=== PATIENT | female | born 1940 | race Caucasian/White ===

== ENCOUNTER 2018-06-19 13:46 | Outpatient (CLI) | payer MEDICARE | END 2018-06-19 13:47 | disposition home or self-care (01) | LOC: BICMAMMO 13:46 | PROVIDERS: ATTEND Internal Medicine | DX: Z12.31 Encounter for screening mammogram for malignant neoplasm of breast (principal); R92.1 Mammographic calcification found on diagnostic imaging of breast; N64.89 Other specified disorders of breast; Z80.3 Family history of malignant neoplasm of breast | CPT/HCPCS: 77063; 77067 ==

== ENCOUNTER 2019-07-09 10:47 | Outpatient (CLI) | payer MEDICARE ==
--- NOTE | 2019-07-09 11:19 | MMO ---
Bilateral MAMMO Bilat Screen [facility]. CLINICAL HISTORY: Patient is 79 years old and is seen for screening. The patient has the following family history of breast cancer: mother and paternal aunt. The patient has no personal history of cancer. VIEWS: The views performed were: bilateral craniocaudal with tomosynthesis and bilateral mediolateral oblique with tomosynthesis. FILMS COMPARED: The present examination has been compared to prior imaging studies performed at [facility] on 05/07/2014, 07/09/2015, 12/22/2016 and 06/19/2018. This study has been interpreted with the assistance of computer-aided detection. MAMMOGRAM FINDINGS: The breasts are heterogeneously dense, which could obscure a lesion on mammography. There are stable benign appearing calcifications seen in both breasts. There are no suspicious masses, suspicious calcifications, or new areas of architectural distortion. IMPRESSION: THERE IS NO MAMMOGRAPHIC EVIDENCE OF MALIGNANCY. A ROUTINE FOLLOW-UP MAMMOGRAM IN 1 YEAR IS RECOMMENDED. THE RESULTS OF THIS EXAM WERE SENT TO THE PATIENT. ACR BI-RADS Category 2 - Benign finding MAMMOGRAPHY NOTE: 1. A negative mammogram report should not delay a biopsy if a dominant of clinically suspicious mass is present. 2. Approximately 10% to 15% of breast cancers are not detected by mammography. 3. Adenosis and dense breasts may obscure an underlying neoplasm. Reported by: JAGRUTI BOSCH MD Electonically Signed: [id number]
== END 2019-07-09 10:48 | disposition home or self-care (01) ==
LOC: BICMAMMO 10:47
PROVIDERS: ATTEND Internal Medicine
DX: Z12.31 Encounter for screening mammogram for malignant neoplasm of breast (principal); Z80.3 Family history of malignant neoplasm of breast
CPT/HCPCS: 77063; 77067

== ENCOUNTER 2020-08-07 13:58 | Outpatient (CLI) | payer MEDICARE | END 2020-08-07 13:59 | disposition home or self-care (01) | LOC: BICMAMMO 13:58 | PROVIDERS: ATTEND Internal Medicine | DX: Z12.31 Encounter for screening mammogram for malignant neoplasm of breast (principal); Z80.3 Family history of malignant neoplasm of breast | CPT/HCPCS: 77063; 77067 ==

== ENCOUNTER 2021-09-15 13:22 | Outpatient (CLI) | payer MEDICARE | END 2021-09-15 13:23 | disposition home or self-care (01) | LOC: BICMAMMO 13:22 | PROVIDERS: ATTEND Internal Medicine | DX: Z12.31 Encounter for screening mammogram for malignant neoplasm of breast (principal); Z80.3 Family history of malignant neoplasm of breast | CPT/HCPCS: 77063; 77067 ==

== ENCOUNTER 2022-11-29 13:59 | Outpatient (CLI) | payer MEDICARE | END 2022-11-29 14:00 | disposition home or self-care (01) | LOC: BICMAMMO 13:59 | PROVIDERS: ATTEND Internal Medicine | DX: Z12.31 Encounter for screening mammogram for malignant neoplasm of breast (principal); Z80.3 Family history of malignant neoplasm of breast; Z91.89 Other specified personal risk factors, not elsewhere classified | CPT/HCPCS: 77063; 77067 ==

== ENCOUNTER 2024-02-08 14:26 | Inpatient (IN) | payer MEDICARE ==
[2024-02-08] MEDS ORDERED: Acetaminophen 325 MG TAB PO PRN (15:57)
[2024-02-08] MEDS ORDERED: Glucagon 1 MG/ML KIT IM PRN (16:15)
[2024-02-08] MEDS ORDERED: Dextrose 5% in Water 1,000 ML IV PRN (16:15)
[2024-02-08] MEDS ORDERED: Dextrose 50% Abboject 50 ML SYRINGE SLOW IVP PRN (16:15)
[2024-02-08] MEDS ORDERED: Insulin Lispro 100 UNIT/ML 10 ML VIAL SC PRN (16:15)
[2024-02-08 16:30] VITALS: BMI 26.5
[2024-02-08] MEDS: Doxycycline 100 MG in Sodium Chloride 0.9% 100 ML IVPB SCH (18:00)
[2024-02-08] MEDS: LevoFLOXacin 750 MG TAB PO SCH (18:01)
[2024-02-08 18:48] LABS: Strep pneumo Urine Ag NEGATIVE (NEGATIVE)
[2024-02-08] MEDS: Carvedilol 6.25 MG TAB PO SCH (20:40)
[2024-02-08] MEDS: Atorvastatin Calcium 40 MG TAB PO SCH ×2 (21:45→21:48)
[2024-02-08] MEDS: Melatonin 3 MG TAB PO PRN (21:45)
[2024-02-09 04:01] LABS: #Basophils Less than 0.03 10x3/uL (0.0-0.2); #Eosinophils Less than 0.03 10x3/uL (0.0-0.7); %Basophils 0.1 % (0.0-1.0); %Lymphocytes 11.5 % (21.0-51.0); %Neutrophils 81.3 % (42.0-75.0); Hematocrit 38.2 % (36.0-47.0); Hemoglobin 12.8 g/dL (12.0-16.0); Mean Corpuscular HGB CONC 33.5 g/dL (32.0-36.0); Mean Corpuscular Hemoglobin 28.3 pg (27.0-31.0); Mean Corpuscular Volume 84.3 fL (78.0-98.0); Mean Platelet Volume 10.5 fL (7.4-10.4); Platelet Count 228 10x3/uL (130-400); RBC Distribution Width 13.7 % (11.5-14.5); Red Blood Cell (RBC) Count 4.53 mill/uL (4.20-5.40)
[2024-02-09 04:16] LABS: Anion Gap 12 mmol/L (10-20); BUN (Urea Nitrogen) 13 mg/dL (9.8-20.1); Calc. Creatinine Clearance 64 mL/min (70-130); Calcium 10.4 mg/dL (7.8-10.44); Carbon Dioxide 22 mmol/L (23-31); Chloride 105 mmol/L (98-107); Estimated GFR 82; Glucose 158 mg/dL (83-110); Potassium 3.6 mmol/L (3.5-5.1); Sodium 135 mmol/L (136-145)
[2024-02-09] MEDS: Doxycycline 100 MG in Sodium Chloride 0.9% 100 ML IVPB SCH (06:14)
[2024-02-09] MEDS: Spironolactone 25 MG TAB PO SCH (08:39)
[2024-02-09] MEDS ORDERED: Atorvastatin Calcium 40 MG TAB PO SCH (09:00)
[2024-02-09] MEDS ORDERED: Guaifenesin DM 100-10/5 ML UDCUP PO PRN (09:31)
[2024-02-09] MEDS ORDERED: Ipratropium/Albuterol 3 ML NEB NEB PRN (09:31)
[2024-02-09] MEDS: Loratadine 10 MG TAB PO SCH (10:25)
[2024-02-09] MEDS: Pantoprazole DR 40 MG TAB PO SCH (10:25)
[2024-02-09 10:38] VITALS: BMI 26.5
[2024-02-09] MEDS ORDERED: LevoFLOXacin 750 MG TAB PO SCH (18:00)
[2024-02-09 22:25] LABS: SARS-CoV-2 N1 Negative; SARS-CoV-2 N2 Negative; SARS-CoV-2 RNAse P1 Positive
[2024-02-09] MEDS: traZODone HCl 50 MG TAB PO SCH (23:21)
[2024-02-10 05:05] LABS: #Basophils 0.04 10x3/uL (0.0-0.2); %Basophils 0.5 % (0.0-1.0); %Eosinophils 0.9 % (0.0-10.0); %Lymphocytes 18.7 % (21.0-51.0); %Monocytes 8.4 % (0.0-10.0); %Neutrophils 70.6 % (42.0-75.0); Hematocrit 37.5 % (36.0-47.0); Hemoglobin 12.4 g/dL (12.0-16.0); Mean Corpuscular HGB CONC 33.1 g/dL (32.0-36.0); Mean Corpuscular Hemoglobin 28.1 pg (27.0-31.0); Mean Corpuscular Volume 84.8 fL (78.0-98.0); Mean Platelet Volume 10.7 fL (7.4-10.4); Platelet Count 227 10x3/uL (130-400); Red Blood Cell (RBC) Count 4.42 mill/uL (4.20-5.40)
[2024-02-10 05:15] LABS: Anion Gap 11 mmol/L (10-20); BUN (Urea Nitrogen) 12 mg/dL (9.8-20.1); Calc. Creatinine Clearance 70 mL/min (70-130); Calcium 10.3 mg/dL (7.8-10.44); Carbon Dioxide 24 mmol/L (23-31); Chloride 109 mmol/L (98-107); Estimated GFR 87; Glucose 138 mg/dL (83-110); Potassium 3.8 mmol/L (3.5-5.1); Sodium 140 mmol/L (136-145)
[2024-02-10] MEDS ORDERED: traZODone HCl 50 MG TAB PO PRN (11:40)
[2024-02-10] MEDS: FLU (Fluad Triv) TS24-25 (65UP)/MF59C/PF 45 MCG/0.5 ML Syringe IM ONE (12:00)
[2024-02-10] MEDS: Polyethylene Glycol 3350 17 GM Packet PO SCH (12:01)
[2024-02-10] MEDS ORDERED: metFORMIN 500 MG TAB PO SCH (17:00)
[2024-02-10] MEDS: metFORMIN 500 MG TAB PO SCH (17:11)
[2024-02-10] MEDS: Calcium Carbonate 600 MG + Vit D TAB PO SCH (17:11)
[2024-02-10] MEDS: Melatonin 3 MG TAB PO SCH (20:37)
[2024-02-10] MEDS: guaiFENesin ER 600 MG TAB PO SCH (20:37)
[2024-02-10] MEDS: Multivit, Therapeutic 1 TAB PO SCH (20:37)
[2024-02-11] MEDS: Spironolactone 25 MG TAB PO SCH (08:40)
[2024-02-11] MEDS: predniSONE 20 MG TAB PO SCH (08:40)
[2024-02-11] MEDS: Mirabegron ER 25 MG ER.TAB PO SCH (08:42)
[2024-02-11] MEDS: Polyethylene Glycol 3350 17 GM Packet PO SCH (08:43)
[2024-02-11] MEDS ORDERED: Lisinopril 10 MG TAB PO SCH (09:00)
[2024-02-11] MEDS: hydrALAZINE 20 MG/ML VIAL SLOW IVP SCH (21:30)
[2024-02-12 06:00] LABS: #Basophils 0.03 10x3/uL (0.0-0.2); %Basophils 0.3 % (0.0-1.0); %Eosinophils 0.4 % (0.0-10.0); %Lymphocytes 17.3 % (21.0-51.0); %Monocytes 6.2 % (0.0-10.0); %Neutrophils 75.1 % (42.0-75.0); Hematocrit 40.6 % (36.0-47.0); Hemoglobin 13.2 g/dL (12.0-16.0); Mean Corpuscular HGB CONC 32.5 g/dL (32.0-36.0); Mean Corpuscular Hemoglobin 27.8 pg (27.0-31.0); Mean Corpuscular Volume 85.7 fL (78.0-98.0); Mean Platelet Volume 10.4 fL (7.4-10.4); Platelet Count 242 10x3/uL (130-400); RBC Distribution Width 13.8 % (11.5-14.5); Red Blood Cell (RBC) Count 4.74 mill/uL (4.20-5.40)
[2024-02-12 06:18] LABS: ALT (SGPT) 16 U/L (8-55); AST (SGOT) 13 U/L (5-34); Albumin 3.2 g/dL (3.4-4.8); Alkaline Phosphatase 23 U/L (40-110); Bilirubin, Direct 0.2 mg/dL (0.1-0.3); Bilirubin, Total 0.6 mg/dL (0.2-1.2); Protein, Total 6.4 g/dL (5.8-8.1)
[2024-02-12 06:19] LABS: Anion Gap 10 mmol/L (10-20); BUN (Urea Nitrogen) 11 mg/dL (9.8-20.1); Calc. Creatinine Clearance 70 mL/min (70-130); Calcium 11.1 mg/dL (7.8-10.44); Carbon Dioxide 23 mmol/L (23-31); Chloride 106 mmol/L (98-107); Estimated GFR 87; Glucose 111 mg/dL (83-110); Magnesium 1.8 mg/dL (1.6-2.6); Potassium 3.4 mmol/L (3.5-5.1); Sodium 136 mmol/L (136-145)
[2024-02-12] MEDS: Potassium Bicarbonate/Cit Ac 20 MEQ TAB PO SCH (08:09)
[2024-02-12] MEDS: Magnesium 2 GM/50 ML(in water) 2 GM in Premix 1 BAG IVPB SCH (08:10)
[2024-02-12] MEDS: OMEGA PO SCH (08:32)
[2024-02-12] MEDS: VIT E PO SCH (08:32)
[2024-02-12] MEDS: UBIDECARENONE PO SCH (08:32)
[2024-02-12] MEDS: Lisinopril 5 MG TAB PO SCH (12:32)
[2024-02-12] MEDS ORDERED: Iopamidol-370 76% 500 ML MDV (1 ML CHARGE) ONE (13:00)
[2024-02-12 18:28] LABS: Legionella Urinary Ag Negative (Negative)
[2024-02-12] MEDS: Aspirin 325 mg Enteric Coated Tablet PO SCH (18:50)
[2024-02-12] MEDS: Polyvinyl Alcohol 1.4%/Povidone 0.6% Opth Drops EA EYE SCH (20:51)
[2024-02-12] MEDS: Doxycycline 100 MG CAP PO SCH (22:26)
[2024-02-12] MEDS: traZODone HCl 50 MG TAB PO PRN (22:26)
[2024-02-13 06:25] LABS: #Basophils 0.03 10x3/uL (0.0-0.2); %Basophils 0.3 % (0.0-1.0); %Eosinophils 0.8 % (0.0-10.0); %Lymphocytes 22.7 % (21.0-51.0); %Monocytes 7.8 % (0.0-10.0); %Neutrophils 67.4 % (42.0-75.0); Hematocrit 39.5 % (36.0-47.0); Hemoglobin 12.7 g/dL (12.0-16.0); Mean Corpuscular HGB CONC 32.2 g/dL (32.0-36.0); Mean Corpuscular Hemoglobin 28.2 pg (27.0-31.0); Mean Corpuscular Volume 87.8 fL (78.0-98.0); Mean Platelet Volume 10.7 fL (7.4-10.4); Platelet Count 226 10x3/uL (130-400); RBC Distribution Width 14.2 % (11.5-14.5)
[2024-02-13 06:45] LABS: Anion Gap 13 mmol/L (10-20); BUN (Urea Nitrogen) 13 mg/dL (9.8-20.1); Calc. Creatinine Clearance 74 mL/min (70-130); Calcium 10.6 mg/dL (7.8-10.44); Carbon Dioxide 26 mmol/L (23-31); Chloride 103 mmol/L (98-107); Estimated GFR 89; Glucose 100 mg/dL (83-110); Magnesium 2.2 mg/dL (1.6-2.6); Potassium 3.8 mmol/L (3.5-5.1); Sodium 138 mmol/L (136-145)
[2024-02-13 06:50] LABS: ALT (SGPT) 15 U/L (8-55); AST (SGOT) 14 U/L (5-34); Albumin 3.1 g/dL (3.4-4.8); Alkaline Phosphatase 23 U/L (40-110); Bilirubin, Direct 0.2 mg/dL (0.1-0.3); Bilirubin, Total 0.4 mg/dL (0.2-1.2); Protein, Total 5.9 g/dL (5.8-8.1)
[2024-02-13] MEDS: Lisinopril 10 MG TAB PO SCH (09:44)
[2024-02-13] MEDS: Aspirin 81 mg Enteric Coated Tablet PO SCH (09:45)
[2024-02-13 22:38] LABS: L.pneumophilia Abs Reactive (Non Reactive)
[2024-02-14 06:21] LABS: #Basophils 0.04 10x3/uL (0.0-0.2); %Basophils 0.4 % (0.0-1.0); %Eosinophils 0.4 % (0.0-10.0); %Lymphocytes 20.4 % (21.0-51.0); %Neutrophils 71.6 % (42.0-75.0); Hematocrit 39.7 % (36.0-47.0); Hemoglobin 12.6 g/dL (12.0-16.0); Mean Corpuscular HGB CONC 31.7 g/dL (32.0-36.0); Mean Corpuscular Hemoglobin 27.9 pg (27.0-31.0); Mean Platelet Volume 10.5 fL (7.4-10.4); Platelet Count 240 10x3/uL (130-400); RBC Distribution Width 14.4 % (11.5-14.5); Red Blood Cell (RBC) Count 4.51 mill/uL (4.20-5.40)
[2024-02-14 06:46] LABS: Anion Gap 12 mmol/L (10-20); BUN (Urea Nitrogen) 14 mg/dL (9.8-20.1); Calc. Creatinine Clearance 68 mL/min (70-130); Calcium 10.7 mg/dL (7.8-10.44); Carbon Dioxide 25 mmol/L (23-31); Chloride 105 mmol/L (98-107); Estimated GFR 87; Glucose 96 mg/dL (83-110); Potassium 3.8 mmol/L (3.5-5.1); Sodium 138 mmol/L (136-145)
[2024-02-14 20:36] LABS: Mycoplasma pneumoniae IgG AB 830 U/mL (0-99); Mycoplasma pneumoniae IgM AB Less than 770 U/mL (0-769)
[2024-02-15 05:52] LABS: #Basophils 0.03 10x3/uL (0.0-0.2); %Basophils 0.3 % (0.0-1.0); %Eosinophils 0.5 % (0.0-10.0); %Lymphocytes 22.2 % (21.0-51.0); %Monocytes 6.5 % (0.0-10.0); %Neutrophils 69.1 % (42.0-75.0); Hematocrit 39.8 % (36.0-47.0); Hemoglobin 12.7 g/dL (12.0-16.0); Mean Corpuscular HGB CONC 31.9 g/dL (32.0-36.0); Mean Corpuscular Volume 87.7 fL (78.0-98.0); Mean Platelet Volume 10.5 fL (7.4-10.4); Platelet Count 243 10x3/uL (130-400); RBC Distribution Width 14.4 % (11.5-14.5); Red Blood Cell (RBC) Count 4.54 mill/uL (4.20-5.40)
[2024-02-15] MEDS: Doxycycline 100 MG CAP PO SCH (10:30)
[2024-02-16 05:56] LABS: #Basophils 0.03 10x3/uL (0.0-0.2); %Basophils 0.3 % (0.0-1.0); %Eosinophils 0.3 % (0.0-10.0); %Lymphocytes 21.9 % (21.0-51.0); %Monocytes 7.1 % (0.0-10.0); %Neutrophils 69.4 % (42.0-75.0); Hematocrit 39.1 % (36.0-47.0); Hemoglobin 12.6 g/dL (12.0-16.0); Mean Corpuscular HGB CONC 32.2 g/dL (32.0-36.0); Mean Corpuscular Volume 86.9 fL (78.0-98.0); Mean Platelet Volume 10.4 fL (7.4-10.4); Platelet Count 223 10x3/uL (130-400); RBC Distribution Width 14.4 % (11.5-14.5)
[2024-02-16 08:35] VITALS: BP 114/65; TEMP 97.7
== END 2024-02-16 10:48 | disposition home or self-care (01) | DRG 196 ==
LOC: 2NO 15:37 → T4-A 02-09 10:57
PROVIDERS: ADMIT Internal Medicine; ATTEND Family Medicine
DX: J67.2 Bird fancier's lung (principal); J96.01 Acute respiratory failure with hypoxia; E87.1 Hypo-osmolality and hyponatremia; I95.1 Orthostatic hypotension; I66.02 Occlusion and stenosis of left middle cerebral artery; I65.21 Occlusion and stenosis of right carotid artery; E11.9 Type 2 diabetes mellitus without complications; I10 Essential (primary) hypertension; E21.3 Hyperparathyroidism, unspecified; E78.5 Hyperlipidemia, unspecified; F17.210 Nicotine dependence, cigarettes, uncomplicated; Z79.899 Other long term (current) drug therapy; Z79.82 Long term (current) use of aspirin; Z79.84 Long term (current) use of oral hypoglycemic drugs
CPT/HCPCS: 36415; 36416; 70450; 70496; 70498; 70551; 71045; 80048; 80076; 82565; 82607; 83036; 83735; 83880; 83970; 84145; 84443; 85025; 86713; 87040; 87449; 87633; 87635; 87798; 87899; 93005; 93010; 93306; J0360; J1815; J3475; J7512; Q9967

== ENCOUNTER 2025-01-09 09:05 | Outpatient (CLI) | payer MEDICARE ==
[2025-01-09 11:21] LABS: Calcium 12.3 mg/dL (7.8-10.44)
== END 2025-01-09 09:06 | disposition home or self-care (01) ==
LOC: NM 09:05
PROVIDERS: ATTEND Otolaryngology Plastic Surgery within the Head & Neck
DX: E83.52 Hypercalcemia (principal); E04.1 Nontoxic single thyroid nodule
CPT/HCPCS: 78072; 82310; 83970; A9500; 36415